=== PATIENT | female | born 1985 | race Caucasian/White ===

== ENCOUNTER 2017-05-05 18:54 | Emergency (ER) | payer OTHER ==
[~2017-05-05] VITALS: Ht 157.5 cm; Wt 63.6 kg
[2017-05-05] MEDS ORDERED: MIRA3350 PO (20:10)
[2017-05-05] MEDS ORDERED: COLA100C5 PO (20:10)
[2017-05-05] MEDS ORDERED: ANUS25SU PR (20:10)
[2017-05-05 20:27] VITALS: BP 106/52
== END 2017-05-05 20:32 | disposition home or self-care (01) ==
LOC: M ED 18:54
DX: K64.4 Residual hemorrhoidal skin tags (principal); Z72.0 Tobacco use

== ENCOUNTER 2020-10-01 18:21 | Emergency (ER) | payer OTHER ==
[~2020-10-01] VITALS: Ht 160 cm; Wt 77.3 kg
[~2020-10-01 18:21] MED LIST: ANUS25SU PR; COLA100C5 PO; MIRA3350 PO
[2020-10-01] MEDS ORDERED: IBUP-1114 PO (18:25)
[2020-10-01] MEDS ORDERED: MIRE1IUD IU (18:27)
[2020-10-01] MEDS: KETOROLAC 60MG 2ML VIAL IM ONE ×2 (20:00→21:38)
[2020-10-01] MEDS: LIDOCAINE 5% (LIDODERM) PATCH TD ONE ×2 (20:00→21:38)
[2020-10-01] MEDS: diazePAM 5MG TABLET PO ONE ×2 (20:00→21:38)
[2020-10-01 20:20] LABS: BASO # 0.1 10^3/uL (0.0-0.2); BASO % 0.9 % (0.0-1.0); EOS # 0.4 10^3/uL (0.0-0.5); EOS % 3.4 % (0.0-3.0); HEMATOCRIT 43.7 % (36.0-47.0); HEMOGLOBIN 14.7 g/dl (12.0-15.5); LYMPH # 3.3 10^3/uL (1.5-5.0); LYMPH % 28.3 % (24.0-44.0); MEAN CORPUSCULAR HGB CONC 33.6 g/dl (32.0-36.5); MEAN CORPUSCULAR VOLUME 95.2 fl (80.0-96.0); MONO # 0.7 10^3/uL (0.0-0.8); MONO % 5.6 % (2.0-8.0); NEUTROPHILS # 7.1 10^3/uL (1.5-8.5); NEUTROPHILS % 61.2 % (36.0-66.0); PLATELET COUNT, AUTOMATED 302 10^3/uL (150-450); RED BLOOD COUNT 4.59 10^6/uL (4.00-5.40); WHITE BLOOD COUNT 11.6 10^3/uL (4.0-10.0)
[2020-10-01 20:47] LABS: ALBUMIN 4.1 GM/DL (3.2-5.2); ALT/SGPT 24 U/L (12-78); BILIRUBIN,DIRECT 0.1 MG/DL (0.0-0.2); BILIRUBIN,TOTAL 0.4 MG/DL (0.2-1.0); LIPASE 290 U/L (73-393); TOTAL PROTEIN 7.4 GM/DL (6.4-8.2)
[2020-10-01 21:02] LABS: BLOOD UREA NITROGEN 20 MG/DL (7-18); CALCIUM LEVEL 9.2 MG/DL (8.5-10.1); CARBON DIOXIDE LEVEL 29 MEQ/L (21-32); CHLORIDE LEVEL 106 MEQ/L (98-107); CREATININE FOR GFR 0.79 MG/DL (0.55-1.30); GLOMERULAR FILTRATION RATE > 60.0 (>60); GLUCOSE, FASTING 87 MG/DL (70-100); SODIUM LEVEL 139 MEQ/L (136-145)
[2020-10-01 21:15] LABS: HCG, SERUM QUALITATIVE NEGATIVE (NEGATIVE)
[2020-10-01] MEDS ORDERED: ANEC4CRE3 TOP (21:38)
[2020-10-01] MEDS ORDERED: NAPR-837 PO (21:38)
[2020-10-01] MEDS ORDERED: METH-1165 PO (21:38)
[2020-10-01] MEDS ORDERED: MACR100C43 PO (21:42)
[2020-10-01 21:52] VITALS: BP 139/88
[2020-10-01 23:29] LABS: CHLAMYDIA DNA AMPLIFICATION NEGATIVE (NEGATIVE); GC DNA AMPLIFICATION NEGATIVE (NEGATIVE)
[2020-10-01] MEDS ORDERED: FLAG500T PO (23:46)
[2020-10-02] MEDS ORDERED: **NOTE PATIENT COMMENT** MISC XX ONE (08:00)
== END 2020-10-01 22:04 | disposition home or self-care (01) ==
LOC: M ED 18:21
DX: N39.0 Urinary tract infection, site not specified (principal); R10.30 Lower abdominal pain, unspecified; J45.909 Unspecified asthma, uncomplicated; K59.00 Constipation, unspecified; F17.200 Nicotine dependence, unspecified, uncomplicated
CPT/HCPCS: 80048; 80076; 81001; 83690; 84703; 85025; 87086; 87661; 96372; 99283; J1885

== ENCOUNTER 2021-04-09 18:01 | Emergency (ER) | payer OTHER ==
[~2021-04-09] VITALS: Ht 160 cm; Wt 77.3 kg
[~2021-04-09 18:01] MED LIST changes: +ANEC4CRE3 TOP; +FLAG500T PO; +IBUP-1114 PO; +MACR100C43 PO; +METH-1165 PO; +MIRE1IUD IU; +NAPR-837 PO
--- OUTSIDE RECORDS SUMMARY | 2021-04-09 18:11 | CCD ---
Author Author [facility] Organization [facility] Address Unknown Phone Unavailable Support Name Relationship Address Phone [facility] [employer] [facility] Next Of Kin [address] [place] [address] Jassi ISIDRO Vanessa Next Of Kin [address] [place] [address] 315 Dille DDS, Josy Next Of Kin [address] [place] [phone] Dille DDS, Josy Next Of Kin [address] [place] [address] PATRICIA LORD Next Of Kin [address] [place] [address] NO, ONE Next Of Kin Unknown [employer] Next Of Kin [address] [facility] [address] [place] [address] SU[place]AR [place] [address] [place] [address] LAUREEN WHITING Next Of Kin [address] [place] [address] Re-disclosure Warning The records that you are about to access may contain information from federally-assisted alcohol or drug abuse programs. If such information is present, then the following federally mandated warning applies: This information has been disclosed to you from records protected by federal confidentiality rules (42 CFR part 2). The federal rules prohibit you from making any further disclosure of this information unless further disclosure is expressly permitted by the written consent of the person to whom it pertains or as otherwise permitted by 42 CFR part 2. A general authorization for the release of medical or other information is NOT sufficient for this purpose. The Federal rules restrict any use of the information to criminally investigate or prosecute any alcohol or drug abuse patient.The records that you are about to access may contain highly sensitive health information, the redisclosure of which is protected by Article 27-F of the [facility] Public Health law. If you continue you may have access to information: Regarding HIV / AIDS; Provided by facilities licensed or operated by the [facility] Office of Mental Health; or Provided by the [facility] Office for People With Developmental Disabilities. If such information is present, then the following [facility] mandated warning applies: This information has been disclosed to you from confidential records which are protected by state law. State law prohibits you from making any further disclosure of this information without the specific written consent of the person to whom it pertains, or as otherwise permitted by law. Any unauthorized further disclosure in violation of state law may result in a fine or fpc sentence or both. A general authorization for the release of medical or other information is NOT sufficient authorization for further disc losure. Family History Family Member Name Family Member Gender Family Member Status Date o f Status Description Data Source(s) Unknown Male Problem [facility] ([facility]) Medications Medication Brand Name Start Date Product Form Dose Route Admi nistrative Instructions Pharmacy Instructions Status Indications Reaction Description Data Source(s) 500 mg 10/02/2020 12:00:00 AM EDT tablet 30 TAKE ONE TABLET BY MOUTH TWICE A DAY WITH FOOD TAKE ONE TABLET BY MOUTH TWICE A DAY WITH FOOD SOLD: 10/02/2020 [facility] Metronidazole 500 MG Oral Tablet METRONIDAZOLE 10/02/2020 12:0 0:00 AM EDT tablet 14 TAKE ONE TABLET BY MOUTH TWICE A DAY TAKE ONE TABLET BY MOUTH TWICE A DAY SOLD: 10/02/2020 [facility] 750 mg 10/02/2020 12:00:00 AM EDT tablet 30 TAKE ONE TABLET BY MOUTH THREE TIMES A DAY TAKE ONE TABLET BY MOUTH THREE TIMES A DAY SOLD: 10/02/2020 [facility] NITROFURANTOIN, MACROCRYSTALS 25 MG / Ni trofurantoin, Monohydrate 75 MG Oral Capsule 100 mg NITROFURANTOIN MONOHYD/M-[id number] 10/02/2020 12:00:00 AM EDT ca psule 10 TAKE ONE CAPSULE BY MOUTH TWICE A DAY TAKE ONE CAPSULE BY MOUTH TWICE A DAY SOLD: 10/02/2020 [facility] Insurance Providers Payer name Policy type / Coverage type Policy ID Covered constitution party ID Covered constitution party's relationship to edmondson Policy [place] Plan Information Managed Care - Community Plan [facility] P [id number] S [id number] Managed Care - [facility] Community Plan P [id number] S [id number] Medicaid S [id number] S [id number] Managed Care - Community Plan [facility] P [id number] S [id number] [place] [id number] SP [id number] UN COMMUNITY PLAN MCDHMO [id number] SP [id number] UNHC COMMUNITY PLAN MCDHMO [id number] SP [id number] Medicaid S [id number] UNHC AMERICHOICE XIX -HMO [id number] 18 [id number] D Managed Care [facility] P [id number] S [id number] D Managed Care [facility] P 10 S 10 MEDICAID -O/P EMERGENCY ROOM [id number] 18 [id number] MEDICAID [id number] SP [id number] [facility] [id number] SP [id number] UNHC COMMUNITY PLAN MCDO [id number] SP [id number] [facility] COMMUNTY PLAN [id number] 18 [id number] [facility] Communty Plan Medicaid [id number] Self [id number] Problems, Conditions, and Diagnoses No Information Surgeries/Procedures No Information Results No Information Social History No Information
[2021-04-10 01:16] VITALS: BP 141/84
[2021-04-10] MEDS ORDERED: BACT800T5 PO (01:30)
--- OUTSIDE RECORDS SUMMARY | 2021-04-10 01:31 | CCD ---
Author Author [facility] Organization [facility] Address Unknown Phone Unavailable Support Name Relationship Address Phone [facility] [employer] [facility] Next Of Kin [address] [place] [address] Jassi ISIDROVanessa Next Of Kin [address] [place] [address] Dille DDS, Josy Next Of Kin [address] [place] [phone] Dille DDS, Josy Next Of Kin [address] [place] [address] PATRICIA LORD Next Of Kin [address] [place] [address] NO, ONE Next Of Kin Unknown [employer] Next Of Kin [address] [place] [address] SUGAR [place] [address] [place] [address] LAUREEN WHITING Next Of Kin [address] [place] [address] Re-disclosure Warning [...] is protected by Article 27-F of the [facility] Public Health law. If you continue you may have access to information: Regarding HIV / AIDS; Provided by facilities licensed or operated by the [facility] Office of Mental Health; or Provided by the [facility] Office for People With Developmental Disabilities. If such information is present, then the following [facility] mandated warning applies: This information has been [...] law may result in a fine or alf sentence or both. A general authorization for the release of medical or other information is NOT sufficient authorization for further disc losure. Family History Family Member Name Family Member Gender Family Member Status Date o f Status Description Data Source(s) Unknown Male Problem [facility] ([facility]) Medications Medication Brand Name Start [...] type / Coverage type Policy ID Covered republican ID Covered republican's relationship to edmondson Policy [place] Plan Information Managed Care - Community Plan [facility] P [id number] S [id number] Managed Care - [facility] Community Plan P [id number] S [id number] Medicaid S [id number] S [id number] Managed Care - Community Plan [facility] P [id number] S [id number] [place] [id number] SP [id number] UNHC COMMUNITY PLAN MCDHMO [id number] SP [id number] UNHC COMMUNITY PLAN MCDHMO [id number] SP [id number] Medicaid S [id number] S [id number] UNHC AMERICHOICE XIX -HMO [id number] 18 [id number] D Managed Care [facility] P [id number] S [id number] D Managed Care [facility] P 10 S 10 MEDICAID -O/P EMERGENCY ROOM [id number] 18 [id number] MEDICAID [id number] SP [id number] [facility] [id number] SP [id number] 300 UNHC COMMUNITY PLAN MCDO [id number] SP [id number] [facility] COMMUNTY PLAN [id number] 18 [id number] [facility] Communty Plan Medicaid [id number] Self [id number] Problems, Conditions, and Diagnoses No Information Surgeries/Procedures No Information Results No Information Social History No Information
[2021-04-10] MEDS ORDERED: BACTRIM 160MG/800MG DS TAB PO ONE (01:35)
== END 2021-04-10 01:45 | disposition home or self-care (01) ==
LOC: M ED 18:01
DX: L72.3 Sebaceous cyst (principal); L08.9 Local infection of the skin and subcutaneous tissue, unspecified; F17.200 Nicotine dependence, unspecified, uncomplicated

== ENCOUNTER → 2021-07-08 | Outpatient (CLI) | payer OTHER ==
[~2021-07-08] MED LIST changes: +BACT800T5 PO
== END ==
LOC: M OUTALCOH 07:38
PROVIDERS: ATTEND Psychiatry & Neurology Psychiatry
DX: Z13.39 Encounter for screening examination for other mental health and behavioral disorders (principal)

== ENCOUNTER 2021-07-31 09:58 | Outpatient (RCR) | payer OTHER | END 2021-08-04 | LOC: M OUTALCOH 09:58 | PROVIDERS: ATTEND Psychiatry & Neurology Psychiatry | DX: F10.20 Alcohol dependence, uncomplicated (principal); Z72.0 Tobacco use ==

== ENCOUNTER → 2021-09-04 | Outpatient (RCR) | payer OTHER | LOC: M OUTALCOH 08-06 13:01 | PROVIDERS: ATTEND Psychiatry & Neurology Psychiatry | DX: F10.20 Alcohol dependence, uncomplicated (principal); Z72.0 Tobacco use ==

== ENCOUNTER 2021-10-01 12:59 | Outpatient (RCR) | payer OTHER | END 2021-10-04 | LOC: M OUTALCOH 12:59 | PROVIDERS: ATTEND Psychiatry & Neurology Psychiatry | DX: F10.20 Alcohol dependence, uncomplicated (principal); Z72.0 Tobacco use ==

== ENCOUNTER 2021-10-27 13:30 | Outpatient (RCR) | payer OTHER | END 2021-11-04 | LOC: M OUTALCOH 13:30 | PROVIDERS: ATTEND Psychiatry & Neurology Psychiatry | DX: F10.20 Alcohol dependence, uncomplicated (principal); Z72.0 Tobacco use ==

== ENCOUNTER 2021-12-03 15:52 | Outpatient (RCR) | payer OTHER | END 2021-12-04 | LOC: M OUTALCOH 15:52 | PROVIDERS: ATTEND Psychiatry & Neurology Psychiatry | DX: F10.20 Alcohol dependence, uncomplicated (principal); Z72.0 Tobacco use ==

== ENCOUNTER 2022-01-02 10:27 | Outpatient (RCR) | payer OTHER | END 2022-01-04 | LOC: M OUTALCOH 10:27 | PROVIDERS: ATTEND Psychiatry & Neurology Psychiatry | DX: F10.20 Alcohol dependence, uncomplicated (principal); Z72.0 Tobacco use ==

== ENCOUNTER 2022-01-21 16:00 | Outpatient (RCR) | payer OTHER | END 2022-02-04 | LOC: M OUTALCOH 16:00 | PROVIDERS: ATTEND Psychiatry & Neurology Psychiatry | DX: F10.20 Alcohol dependence, uncomplicated (principal); Z72.0 Tobacco use ==

== ENCOUNTER → 2022-01-25 | Outpatient (REF) | payer OTHER | LOC: M LAB REF 18:16 | PROVIDERS: ATTEND Physician Assistant Medical | DX: R50.9 Fever, unspecified (principal) ==

== ENCOUNTER → 2022-03-06 | Outpatient (RCR) | payer OTHER | LOC: M OUTALCOH 02-19 12:42 | PROVIDERS: ATTEND Psychiatry & Neurology Psychiatry | DX: F10.20 Alcohol dependence, uncomplicated (principal); Z72.0 Tobacco use ==

== ENCOUNTER 2022-04-02 09:00 | Outpatient (RCR) | payer OTHER | END 2022-04-06 | LOC: M OUTALCOH 09:00 | PROVIDERS: ATTEND Psychiatry & Neurology Psychiatry | DX: F10.20 Alcohol dependence, uncomplicated (principal); Z72.0 Tobacco use ==

== ENCOUNTER 2022-05-04 16:00 | Outpatient (RCR) | payer OTHER | END 2022-05-06 | LOC: M OUTALCOH 16:00 | PROVIDERS: ATTEND Psychiatry & Neurology Psychiatry | DX: F10.20 Alcohol dependence, uncomplicated (principal); Z72.0 Tobacco use ==

== ENCOUNTER 2022-05-25 16:00 | Outpatient (RCR) | payer OTHER | END 2022-06-06 | LOC: M OUTALCOH 16:00 | PROVIDERS: ATTEND Psychiatry & Neurology Psychiatry | DX: F10.20 Alcohol dependence, uncomplicated (principal); Z72.0 Tobacco use ==

== ENCOUNTER 2022-06-26 09:30 | Outpatient (RCR) | payer OTHER | END 2022-07-07 | LOC: M OUTALCOH 09:30 | PROVIDERS: ATTEND Psychiatry & Neurology Psychiatry | DX: F10.20 Alcohol dependence, uncomplicated (principal); Z72.0 Tobacco use ==

== ENCOUNTER 2022-08-03 16:00 | Outpatient (RCR) | payer OTHER | END 2022-08-04 | LOC: M OUTALCOH 16:00 | PROVIDERS: ATTEND Psychiatry & Neurology Psychiatry | DX: F10.20 Alcohol dependence, uncomplicated (principal); Z72.0 Tobacco use ==

== ENCOUNTER 2022-08-21 10:24 | Outpatient (RCR) | payer OTHER | END 2022-09-04 | LOC: M OUTALCOH 10:24 | PROVIDERS: ATTEND Psychiatry & Neurology Psychiatry | DX: F10.20 Alcohol dependence, uncomplicated (principal); Z72.0 Tobacco use ==

== ENCOUNTER 2022-09-25 10:30 | Outpatient (RCR) | payer OTHER | END 2022-10-04 | LOC: M OUTALCOH 10:30 | PROVIDERS: ATTEND Psychiatry & Neurology Psychiatry | DX: F10.20 Alcohol dependence, uncomplicated (principal); Z72.0 Tobacco use ==

== ENCOUNTER → 2023-10-18 | Outpatient (REF) | payer OTHER, SELFPAY ==
[2023-10-18 17:03] LABS: HEMOGLOBIN A1c 4.6 % (4.0-6.0)
[2023-10-18 17:21] LABS: CHOLESTEROL LEVEL 148 MG/DL (<200); CHOLESTEROL RISK RATIO 2.33 (<5); HDL CHOLESTEROL 63.5 MG/DL (>40); LDL CHOLESTEROL 74.7 MG/DL (<100); NON-HDL-C 84.5 MG/DL; TRIGLYCERIDES LEVEL 49 MG/DL (<150)
[2023-10-18 17:23] LABS: THYROID STIMULATING HORMONE 1.925 uIU/ML (0.55-4.78)
[2023-10-18 17:24] LABS: TOTAL 25(OH) VITAMIN D 10.6 NG/ML (20.0-100.0)
== END ==
LOC: M LAB REF 16:27
PROVIDERS: ATTEND Nurse Practitioner Family
DX: E66.3 Overweight (principal); E55.9 Vitamin D deficiency, unspecified; Z11.9 Encounter for screening for infectious and parasitic diseases, unspecified

== ENCOUNTER → 2023-12-27 | Outpatient (CLI) | payer SELFPAY | LOC: M RAD 10:05 | PROVIDERS: ATTEND Surgery Plastic and Reconstructive Surgery | DX: Z01.818 Encounter for other preprocedural examination (principal) ==